=== PATIENT | female | born 2000 | race Caucasian/White ===

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

== ENCOUNTER 2022-01-11 12:06 | Emergency (ER) | payer OTHER ==
[~2022-01-11 12:06] MED LIST: BACTROBAN OINT22 GM EXT; CEPHALEXIN500 M1 PO; IBUPROFEN600 MG PO
[2022-01-11 13:45] LABS: HEMOGLOBIN 14.7 gm/dl (12.3-15.3); RED BLOOD COUNT 5.13 M/UL (4.00-5.10); WHITE BLOOD COUNT 8.9 K/UL (4.5-11.0)
[2022-01-11 14:06] LABS: BUN/CREATININE RATIO 12 (0-10)
== END 2022-01-11 16:20 | disposition home or self-care (01) ==
LOC: ER1 12:06
PROVIDERS: Physician Assistant
DX: R07.89 Other chest pain (principal); F41.0 Panic disorder [episodic paroxysmal anxiety]; Z87.891 Personal history of nicotine dependence
CPT/HCPCS: 71045; 80053; 81001; 84703; 85025; 87086; 93005; 96374; 96375; 99285; J1200; J2405

== ENCOUNTER 2022-02-22 12:52 | Emergency (ER) | payer OTHER ==
[2022-02-22 14:24] LABS: HEMOGLOBIN 13.1 gm/dl (12.3-15.3); RED BLOOD COUNT 4.55 M/UL (4.00-5.10); WHITE BLOOD COUNT 7.7 K/UL (4.5-11.0)
[2022-02-22 14:44] LABS: BUN/CREATININE RATIO 13 (0-10)
== END 2022-02-22 16:55 | disposition home or self-care (01) ==
LOC: ER1 12:52
PROVIDERS: Nurse Practitioner
DX: U07.1 COVID-19 (principal); F17.290 Nicotine dependence, other tobacco product, uncomplicated
CPT/HCPCS: 0240U; 71045; 80053; 85025; 85379; 96361; 96374; 96375; 99284; J1100; J2405